=== PATIENT | male | born 1970 | race Caucasian/White ===

== ENCOUNTER 2017-03-11 14:05 | Inpatient (IN) | payer MEDICAID, OTHER ==
[2017-03-11 14:21] LABS: Hematocrit 50.6 % (42.0-52.0); Hemoglobin 15.7 gm/dL (13.5-18.0); Mean Cell Volume 99.6 fl (78-100); Mean Corpuscular Hemoglobin 30.9 pg (27-31); Mean Platelet Volume 9.7 fl (6.0-9.5); Neutrophil # 5.2 K/mm3 (1.3-6.0); Neutrophil % 62.1 % (42-75.0); Platelet Count 187 K/mm3 (150-450); Red Blood Count 5.08 M/mm3 (4.7-6.0); White Blood Count 8.4 K/mm3 (4.0-10.5)
[2017-03-11 14:44] LABS: Troponin I 0.028 ng/ml (0.00-0.10)
[2017-03-11 14:46] LABS: Anion Gap 10.3 mmol/L (6.8-13.8); BUN/Creatinine Ratio 17.1 (9.0-21.6); Bilirubin, Total 0.3 mg/dL (0.0-1.1); Ca. Corrected For Albumin 8.9 mg/dL (8.4-10.2); Calcium * 8.4 mg/dL (7.9-10.9); Potassium 4.3 mmol/L (3.4-4.6); Total Protein 7.2 gm/dL (6.2-8.2)
[2017-03-11] MEDS: FUROSEMIDE 10 MG/ML VIAL IV SCH ×2 (16:44→21:53)
[2017-03-11] MEDS: LISINOPRIL 20 MG TABLET PO SCH (16:52)
[2017-03-11] MEDS: ALBUTEROL SULFATE 2.5 MG/0.5 ML VIAL.NEB IH PRN (18:39)
[2017-03-11 21:31] LABS: Anion Gap 8.1 mmol/L (6.8-13.8); BUN/Creatinine Ratio 16.4 (9.0-21.6); Bilirubin, Total 0.2 mg/dL (0.0-1.1); Ca. Corrected For Albumin 8.9 mg/dL (8.4-10.2); Calcium * 8.4 mg/dL (7.9-10.9); Carbon Dioxide 36.7 mmol/L (24-32.6); Potassium 3.8 mmol/L (3.4-4.6); Total Protein 7.2 gm/dL (6.2-8.2)
[2017-03-11 21:35] LABS: Troponin I 0.042 ng/ml (0.00-0.10)
--- NOTE | 2017-03-11 23:55 | HP ---
Chief Complaint - Chief Complaint Date of Service: 03/11/17 Time of Service: 17:00 Chief Complaint: Shortness of breath, chest heaviness History of Present Illness: Rafal is a 46 yo male that presented to clinic with me today for shortness of breath and chest heaviness. He has a history of chronic diastolic CHF and is on lasix and hypertension on lisinopril, but reports he has been out of medication. His reports he has been having these symptoms for the past month with worsening over time. She reports she has seen him blue at times. She observes apneas and he has been set up for a sleep study but he had to cancel. He reports not watching his salt intake and has gained over 40lbs in the last year. - Patient's Past Medical History Patient History - Medical: Arthritis, Chronic Pain Patient History - Cardiac/Respiratory: Asthma, CHF - Chronic Diastolic CHF, Hypertension Patient History - Surgical Procedures: T & A, Hernia Repair Patient History - Other: None - Family History Father Family History - Medical: Family History - Cardiac/Respiratory: COPD Family History - Cancer: Lung Mother Family History - Cardiac/Respiratory: Hypertension Grandfather-Paternal Family History - Cardiac/Respiratory: COPD Grandmother-Maternal Family History - Medical: Diabetes Type 2 - Social History Living Situations: home Psych History: No pertinent hx Smoking Status: Never smoker Have you smoked in the past 12 months: No Do you dip or chew tobacco: No Alcohol Use: none Drug Use: none Review Of Systems (GEN) - Review of Systems Generalized/Overall Review: Present: Weakness, Diaphoresis, Fatigue, Weight gain. Absent: Chills, Fever EENTM: Present: No Symptoms Reported Respiratory: Present: Cough, Shortness of Breath, Orthopnea Cardiac: Present: Chest Pain, Edema, Syncope. Absent: Palpitations Abdominal: Present: No Symptoms Reported Genitourinary: Present: No Symptoms Reported Musculoskeletal: Present: No Symptoms Reported Neurological: Present: No Symptoms Reported Skin: Present: No Symptoms Reported Endocrine: Present: No Symptoms Reported Allergies/Adverse Reactions: Allergies Allergy/AdvReac Type Severity Reaction Status Date / Time No Known Allergies Allergy Verified 03/11/17 16:31 Home Medications: HOME MEDICATIONS NK [No Home Medication] 12/23/12 [Last Taken Unknown] Exam - Exam Vital Signs: Vital Signs - Last Taken Temp 36.4 C L 03/11/17 23:45 Pulse 89 03/11/17 23:45 Resp 20 03/11/17 23:45 BP 145/96 03/11/17 23:45 Pulse Ox 92 03/11/17 23:45 Constitutional: Present: Alert, Oriented x3, Cooperative, Moderate distress - Moderate respiratory distress with tachypnea, chest protrusion ENT Exam: Present: hearing grossly normal Eye Exam: bilateral eye: normal inspection Respiratory: Present: respiratory distress, crackles Cardiovascular/Chest: Present: regular rate, rhythm, no murmur, edema - 3+ Bilateral lower extremities Abdomen: Present: Normal bowel sounds, soft, nontender, nondistended Skin Exam: Present: normal color, warm/dry, no cyanosis Lymphatic: Present: no adenopathy Neurologic: Present: alert, normal mood/affect, oriented x 3 Appearance: Present: appropriate appearance, appropriate insight Diagnostic Studies: Abnormal Lab Results 03/11/17 03/11/17 03/11/17 Range/Units 14:05 14:05 14:05 MCHC 31.0 L (32-36) g/dl RDW 15.0 H (11.5-14.0) % MPV 9.7 H (6.0-9.5) fl Immature Gran % (Auto) 0.70 H (0.001-0.429) % Immature Gran # (Auto) 0.06 H (0.000-0.0310) K/mm3 Monocytes % 11.3 H (0.0-9) % D-Dimer 0.88 H (0.19-0.49) mg/L Plasma Sodium (130-142) mmol/L Carbon Dioxide (24-32.6) mmol/L BUN 24 H (6-23) mg/dL Creatinine (0.4-1.4) mg/dL Est GFR (Non-Af Amer) 57 L (60-130) mL/min Random Glucose 143 H (70-110) mg/dL B-Natriuretic Peptide 1230 H (5-140) pg/mL Albumin 3.0 L (3.4-5.0) gm/dl 03/11/17 Range/Units 21:10 MCHC (32-36) g/dl RDW (11.5-14.0) % MPV (6.0-9.5) fl Immature Gran % (Auto) (0.001-0.429) % Immature Gran # (Auto) (0.000-0.0310) K/mm3 Monocytes % (0.0-9) % D-Dimer (0.19-0.49) mg/L Plasma Sodium 143 H (130-142) mmol/L Carbon Dioxide 36.7 H (24-32.6) mmol/L BUN 26 H (6-23) mg/dL Creatinine 1.59 H (0.4-1.4) mg/dL Est GFR (Non-Af Amer) 50 L (60-130) mL/min Random Glucose 148 H (70-110) mg/dL B-Natriuretic Peptide (5-140) pg/mL Albumin 3.0 L (3.4-5.0) gm/dl Laboratory Results WBC 8.4 K/mm3 (4.0-10.5) 03/11/17 14:05 RBC 5.08 M/mm3 (4.7-6.0) 03/11/17 14:05 Hgb 15.7 gm/dL (13.5-18.0) 03/11/17 14:05 Hct 50.6 % (42.0-52.0) 03/11/17 14:05 MCV 99.6 fl (78-100) 03/11/17 14:05 MCH 30.9 pg (27-31) 03/11/17 14:05 MCHC 31.0 g/dl (32-36) L 03/11/17 14:05 RDW 15.0 % (11.5-14.0) H 03/11/17 14:05 Plt Count 187 K/mm3 (150-450) 03/11/17 14:05 MPV 9.7 fl (6.0-9.5) H 03/11/17 14:05 Immature Gran % (Auto) 0.70 % (0.001-0.429) H 03/11/17 14:05 Immature Gran # (Auto) 0.06 K/mm3 (0.000-0.0310) H 03/11/17 14:05 Neutrophils % 62.1 % (42-75.0) 03/11/17 14:05 Lymphocytes % 24.0 % (20-51) 03/11/17 14:05 Monocytes % 11.3 % (0.0-9) H 03/11/17 14:05 Eosinophils % 1.3 % (0.0-3.0) 03/11/17 14:05 Basophils % 0.6 % (0.0-1.0) 03/11/17 14:05 Nucleated RBC % 0.0 k/mm3 (0-1) 03/11/17 14:05 Neutrophils # 5.2 K/mm3 (1.3-6.0) 03/11/17 14:05 Lymphocytes # 2.0 k/mm3 (1.5-3.5) 03/11/17 14:05 Monocytes # 1.0 k/mm3 (0.0-1.0) 03/11/17 14:05 Eosinophils # 0.1 k/mm3 (0.0-0.7) 03/11/17 14:05 Absolute Basophils 0.1 k/mm3 (0.0-0.1) 03/11/17 14:05 D-Dimer 0.88 mg/L (0.19-0.49) H 03/11/17 14:05 Sodium 142 mmol/L (132-142) 03/11/17 21:10 Plasma Sodium 143 mmol/L (130-142) H 03/11/17 21:10 Potassium 3.8 mmol/L (3.4-4.6) 03/11/17 21:10 Chloride 101 mmol/L (97-106) 03/11/17 21:10 Carbon Dioxide 36.7 mmol/L (24-32.6) H 03/11/17 21:10 Anion Gap 8.1 mmol/L (6.8-13.8) 03/11/17 21:10 BUN 26 mg/dL (6-23) H 03/11/17 21:10 Creatinine 1.59 mg/dL (0.4-1.4) H 03/11/17 21:10 Est GFR (Non-Af Amer) 50 mL/min (60-130) L 03/11/17 21:10 BUN/Creatinine Ratio 16.4 (9.0-21.6) 03/11/17 21:10 Random Glucose 148 mg/dL (70-110) H 03/11/17 21:10 Calcium 8.4 mg/dL (7.9-10.9) 03/11/17 21:10 Calcium Adj for Albumin 8.9 mg/dL (8.4-10.2) 03/11/17 21:10 Total Bilirubin 0.2 mg/dL (0.0-1.1) 03/11/17 21:10 AST 24 U/L (0-48) 03/11/17 21:10 ALT 35 U/L (19-67) 03/11/17 21:10 Alkaline Phosphatase 100 U/L (50-170) 03/11/17 21:10 Troponin I 0.042 ng/ml (0.00-0.10) 03/11/17 21:10 B-Natriuretic Peptide 1230 pg/mL (5-140) H 03/11/17 14:05 Total Protein 7.2 gm/dL (6.2-8.2) 03/11/17 21:10 Albumin 3.0 gm/dl (3.4-5.0) L 03/11/17 21:10 Assessment/Plan - Assessment/Plan (1) Acute on chronic diastolic (congestive) heart failure Assessment: Rafal is a 46 yo male with known chronic diastolic CHF that is in acute on chronic failure with increased edema, weight, shortness of breath, and crackles on exams. Will get a chest xray, CBC, CMP, BNP, troponin, and EKG. Will evaluate for CA. Will start diuresis with lasix 80mg IV every 6 hours. Will monitor renal function with diuresis. Will restrict sodium. Oxygen in clinic was 90% on room air. Will plan to improve symptoms with diuresis over night and tomorrow and discharge to home tomorrow afternoon if clinically improved. Expect 1 midnight hospital course. Problem: Acute
[2017-03-12] MEDS: FUROSEMIDE 10 MG/ML VIAL IV SCH (03:56)
[2017-03-12] MEDS: LISINOPRIL 20 MG TABLET PO SCH (09:09)
[2017-03-12 09:40] LABS: Hematocrit 53.9 % (42.0-52.0); Hemoglobin 17.1 gm/dL (13.5-18.0); Mean Cell Volume 97.8 fl (78-100); Mean Corpuscular Hgb Conc 31.7 g/dl (32-36); Mean Platelet Volume 9.6 fl (6.0-9.5); Neutrophil # 7.4 K/mm3 (1.3-6.0); Neutrophil % 72.1 % (42-75.0); Platelet Count 226 K/mm3 (150-450); Red Blood Count 5.51 M/mm3 (4.7-6.0); Red Cell Distribution Width 15.4 % (11.5-14.0); White Blood Count 10.3 K/mm3 (4.0-10.5)
[2017-03-12 09:56] LABS: Albumin * 3.2 gm/dl (3.4-5.0); BUN/Creatinine Ratio 16.3 (9.0-21.6); Bilirubin, Total 0.3 mg/dL (0.0-1.1); Calcium * 8.7 mg/dL (7.9-10.9); Carbon Dioxide 40.1 mmol/L (24-32.6); Potassium 4.1 mmol/L (3.4-4.6); Total Protein 7.8 gm/dL (6.2-8.2)
[2017-03-12] MEDS ORDERED: FUROSEMIDE 10 MG/ML VIAL IV ONE (11:34)
[2017-03-12] MEDS: ALBUTEROL SULFATE 2.5 MG/0.5 ML VIAL.NEB IH PRN ×2 (18:48→22:48)
--- NOTE | 2017-03-12 23:44 | PN ---
Subjective - Date and Time Seen Date: 03/12/17 Time: 16:12 Subjective Narrative: Rafal reports shortness of breath with ambulation but improved today from yesterday. He reports he has been urinating a lot. No chest pain, fever, or chills. Patient was placed on oxygen as saturation has dropped to as low as 81% on room air at rest. Objective - Vitals Vitals: Last Vital Signs Temp 36.5 C 03/12/17 19:00 Pulse 73 03/12/17 22:58 Resp 20 03/12/17 22:58 BP 139/90 03/12/17 19:00 Pulse Ox 93 03/12/17 22:48 - Abnormal Lab Findings Abnormal Lab Findings: Abnormal Lab Results 03/12/17 03/12/17 Range/Units 09:30 09:30 Hct 53.9 H (42.0-52.0) % MCHC 31.7 L (32-36) g/dl RDW 15.4 H (11.5-14.0) % MPV 9.6 H (6.0-9.5) fl Immature Gran % (Auto) 1.50 H (0.001-0.429) % Immature Gran # (Auto) 0.15 H (0.000-0.0310) K/mm3 Lymphocytes % 15.1 L (20-51) % Neutrophils # 7.4 H (1.3-6.0) K/mm3 Carbon Dioxide 40.1 H (24-32.6) mmol/L BUN 25 H (6-23) mg/dL Creatinine 1.53 H (0.4-1.4) mg/dL Est GFR (Non-Af Amer) 52 L (60-130) mL/min Random Glucose 146 H (70-110) mg/dL Albumin 3.2 L (3.4-5.0) gm/dl - Exam Constitutional: Present: Alert, Oriented x3, Cooperative ENT Exam: Present: hearing grossly normal Respiratory: Present: crackles Cardiovascular/Chest: Present: regular rate, rhythm, no murmur, edema - 3+ bilateral lower extremity Abdomen: Present: Normal bowel sounds, soft, nontender, nondistended Assessment/Plan - Problems/Diagnosis (1) Acute respiratory failure Problem: Acute Qualifiers: Respiratory failure complication: hypoxia Qualified Code(s): J96.01 - Acute respiratory failure with hypoxia Narrative: Will change from observation to acute inpatient status for acute respiratory failure. He will need oxygen weaning and additional diuresis with lasix. Expect >2 midnights. Oxygen dropped to 81% on room air at rest. Improved to >90% with 2lpm of oxygen via nasal canula. Will attempt to wean from oxygen with further diuresis. (2) Acute on chronic diastolic (congestive) heart failure Problem: Acute Narrative: Continuing diuresis with lasix 80mg IV prn. Requiring oxygen for hypoxia. Hope to wean from oxygen with further diuresis. If unable to wean may need set up with home oxygen. On lisinopril. (3) Hypertension Problem: Acute Qualifiers: Hypertension type: essential hypertension Qualified Code(s): I10 - Essential (primary) hypertension Narrative: Lisinopril and lasix. Monitor with diuresis.
[2017-03-13] MEDS: ALBUTEROL SULFATE 2.5 MG/0.5 ML VIAL.NEB IH PRN ×2 (02:50→09:51)
[2017-03-13] MEDS ORDERED: FUROSEMIDE 10 MG/ML VIAL IV ONE ×2 (07:34→19:32)
[2017-03-13 07:51] LABS: Hematocrit 57.9 % (42.0-52.0); Hemoglobin 17.8 gm/dL (13.5-18.0); Mean Cell Volume 99.7 fl (78-100); Mean Corpuscular Hemoglobin 30.6 pg (27-31); Mean Corpuscular Hgb Conc 30.7 g/dl (32-36); Mean Platelet Volume 9.3 fl (6.0-9.5); Neutrophil # 7.3 K/mm3 (1.3-6.0); Neutrophil % 71.8 % (42-75.0); Platelet Count 246 K/mm3 (150-450); Red Blood Count 5.81 M/mm3 (4.7-6.0); Red Cell Distribution Width 15.5 % (11.5-14.0); White Blood Count 10.2 K/mm3 (4.0-10.5)
[2017-03-13 08:10] LABS: Albumin * 3.1 gm/dl (3.4-5.0); Anion Gap 6.1 mmol/L (6.8-13.8); BUN/Creatinine Ratio 16.3 (9.0-21.6); Bilirubin, Total 0.4 mg/dL (0.0-1.1); Ca. Corrected For Albumin 9.3 mg/dL (8.4-10.2); Calcium * 8.9 mg/dL (7.9-10.9); Carbon Dioxide 42.8 mmol/L (24-32.6); Potassium 4.9 mmol/L (3.4-4.6); Total Protein 7.7 gm/dL (6.2-8.2)
[2017-03-13] MEDS: LISINOPRIL 20 MG TABLET PO SCH (08:48)
[2017-03-13] MEDS ORDERED: ACETAMINOPHEN 500 MG TABLET PO ONE (17:21)
[2017-03-13] MEDS: ACETAMINOPHEN 500 MG TABLET PO PRN (22:41)
--- NOTE | 2017-03-13 23:58 | PN ---
Subjective - Date and Time Seen Date: 03/13/17 Time: 16:45 Subjective Narrative: Rafal is still on oxygen today. If removed from oxygen he drops to 84% on room air, especially with ambulation. He is feeling much better and denies significant shortness of breath. No chest pain, fever, chills, nausea, or vomiting. He has lost about 25lbs of water weight with lasix. Objective - Vitals Vitals: Last Vital Signs Temp 36.4 C L 03/13/17 22:27 Pulse 89 03/13/17 22:27 Resp 22 H 03/13/17 22:27 BP 132/83 03/13/17 22:27 Pulse Ox 93 03/13/17 22:27 - Abnormal Lab Findings Abnormal Lab Findings: Abnormal Lab Results 03/13/17 03/13/17 Range/Units 07:40 07:40 Hct 57.9 H (42.0-52.0) % MCHC 30.7 L (32-36) g/dl RDW 15.5 H (11.5-14.0) % Immature Gran % (Auto) 0.60 H (0.001-0.429) % Immature Gran # (Auto) 0.06 H (0.000-0.0310) K/mm3 Lymphocytes % 16.8 L (20-51) % Neutrophils # 7.3 H (1.3-6.0) K/mm3 Plasma Sodium 143 H (130-142) mmol/L Potassium 4.9 H (3.4-4.6) mmol/L Carbon Dioxide 42.8 H (24-32.6) mmol/L Anion Gap 6.1 L (6.8-13.8) mmol/L BUN 26 H (6-23) mg/dL Creatinine 1.60 H (0.4-1.4) mg/dL Est GFR (Non-Af Amer) 49 L (60-130) mL/min Random Glucose 137 H (70-110) mg/dL Albumin 3.1 L (3.4-5.0) gm/dl - Exam Constitutional: Present: Alert, Oriented x3, Cooperative ENT Exam: Present: hearing grossly normal Respiratory: Present: lungs clear Cardiovascular/Chest: Present: regular rate, rhythm, no murmur, edema - 3+ bilateral lower extremities Abdomen: Present: Normal bowel sounds, soft, nontender, nondistended Skin Exam: Present: normal color, warm/dry, no cyanosis Assessment/Plan - Problems/Diagnosis (1) Acute respiratory failure Problem: Acute Qualifiers: Respiratory failure complication: hypoxia Qualified Code(s): J96.01 - Acute respiratory failure with hypoxia Narrative: Continues to be hypoxic off of oxygen. Will continue diuresis and oxygen weaning. He is clinically feeling much better and reports being ready for home. He looks clinically better as well with improved lung sounds, a loss of about 25lbs of water weight. If oxygenation is not improved this may take a longer weaning from oxygen or he may have chronic respiratory failure. Will look into home oxygen tomorrow if still needing oxygen. (2) Acute on chronic diastolic (congestive) heart failure Problem: Acute Narrative: Improving with diuresis. Clinically feeling better, but oxygen still drops to 84 % on room air. Will continue to wean if able. (3) Hypertension Problem: Acute Qualifiers: Hypertension type: essential hypertension Qualified Code(s): I10 - Essential (primary) hypertension
[2017-03-14 08:54] LABS: Hematocrit 56.4 % (42.0-52.0); Hemoglobin 17.6 gm/dL (13.5-18.0); Mean Cell Volume 98.4 fl (78-100); Mean Corpuscular Hemoglobin 30.7 pg (27-31); Mean Corpuscular Hgb Conc 31.2 g/dl (32-36); Mean Platelet Volume 8.9 fl (6.0-9.5); Neutrophil % 67.3 % (42-75.0); Platelet Count 241 K/mm3 (150-450); Red Blood Count 5.73 M/mm3 (4.7-6.0); Red Cell Distribution Width 15.3 % (11.5-14.0); White Blood Count 10.4 K/mm3 (4.0-10.5)
[2017-03-14 09:06] LABS: Albumin * 3.1 gm/dl (3.4-5.0); Anion Gap 2.6 mmol/L (6.8-13.8); BUN/Creatinine Ratio 19.3 (9.0-21.6); Bilirubin, Total 0.4 mg/dL (0.0-1.1); Ca. Corrected For Albumin 9.3 mg/dL (8.4-10.2); Calcium * 8.9 mg/dL (7.9-10.9); Potassium 4.6 mmol/L (3.4-4.6); Total Protein 7.8 gm/dL (6.2-8.2)
[2017-03-14] MEDS: LISINOPRIL 20 MG TABLET PO SCH (09:14)
[2017-03-14] MEDS ORDERED: FUROSEMIDE 10 MG/ML VIAL IV ONE (09:29)
[2017-03-14] MEDS: ACETAMINOPHEN 500 MG TABLET PO PRN (10:17)
--- NOTE | 2017-03-14 11:44 | PN ---
Progess Note - Interim Narrative: 03/14/17 11:42 Patient was ambulated in the halls today on room air and dropped to 83% and improved to 94% on 2lpm with ambulation.
[2017-03-14 15:33] VITALS: BP 124/79
--- NOTE | 2017-03-14 16:38 | DS ---
(1) Acute respiratory failure Problem: Acute Qualifiers: Respiratory failure complication: hypoxia Qualified Code(s): J96.01 - Acute respiratory failure with hypoxia (2) Acute on chronic diastolic (congestive) heart failure Problem: Acute (3) Hypertension Problem: Acute Qualifiers: Hypertension type: essential hypertension Qualified Code(s): I10 - Essential (primary) hypertension Description of Stay: Rafal is a 46 yo male admitted with acute on chronic diastolic CHF with weight gain and shortness of breath. He was found to be hypoxic with ambulation and placed on oxygen. He was diuresed and attempted to wean off oxygen. Although he did diurese well he continued to require oxygen. Will set up with home oxygen and continue to wean in outpatient follow up. Procedures Performed: none Discharge Disposition: Home self care Disposition: Home self-care Condition: Fair Discharge Activity: Activity as tolerated Discharge Diet: Low salt Referrals: Bang Buck DO [Primary Care Provider] - One Week Problem Oriented Discharge Instructions to Patient/Family: CHF Patient Instructions Additional Patient Instructions (free text): Continue Oxygen at home. Monitor weight daily each morning. Call clinic if weight rises >2lbs in 24 hours or >5lbs in a week. Avoid sodium/salt. We will follow up in clinic in a week to see if oxygen is still needed. Take lisinopril and lasix daily to help keep fluid off. Follow up appointment with Dr. Buck on 03/20/17 at 10:00am Prescriptions (Any new or edited meds): Albuterol Sulfate [Proair Hfa] 2 puff IH Q6H PRN #1 [email or web address] PRN Reason: Shortness Of Breath Furosemide [Lasix] 80 mg PO DAILY #30 tablet Lisinopril 20 mg PO DAILY #30 tablet Complete Home Medications List: Complete Home Medication List: Albuterol Sulfate [Proair Hfa] 2 puff IH Q6H PRN #1 [email or web address] 03/14/17 Furosemide [Lasix] 80 mg PO DAILY #30 tablet 03/14/17 Lisinopril 20 mg PO DAILY #30 tablet 03/14/17
== END 2017-03-14 17:57 | disposition home or self-care (01) | DRG 291 ==
LOC: MS 14:05 → LAB 14:05 → MS 15:29 → OBSVTOIN 03-12 13:45
PROVIDERS: ADMIT Family Medicine; ATTEND Family Medicine
DX: I50.33 Acute on chronic diastolic (congestive) heart failure (principal); J96.01 Acute respiratory failure with hypoxia; I10 Essential (primary) hypertension
CPT/HCPCS: 36415; 71275; 80053; 83880; 84484; 85025; 85379; 93005; 94640; G0378